=== PATIENT | male | born 2000 | race Caucasian/White ===

== ENCOUNTER 2022-08-16 08:23 | Emergency (ER) | payer SELFPAY ==
--- NOTE | 2022-08-16 09:46 | RAD REPORT ---
EXAM DESCRIPTION: RAD - Ankle Left 3 View - 08/16/2022 8:49 am CLINICAL HISTORY: ankle pain Lateral ankle pain. COMPARISON: No comparisons FINDINGS: Moderate soft tissue swelling is seen laterally. No fracture or dislocation evident.
--- NOTE | 2022-08-16 10:19 | ER ---
Nurse's Notes [facility] Name: Freddie Starkey Age: 22 yrs Sex: Male : 2000 Arrival Date: 08/16/2022 Time: 08:26 Bed 10 Private MD: Diagnosis: Sprain of ankle Presentation: 08/16 08:33 Chief complaint: Patient states: left ankle pain and swelling, rolled ankle yesterday. aa5 Coronavirus screen: At this time, the client does not indicate any symptoms associated with coronavirus-19. Ebola Screen: Patient denies travel to an Ebola-affected area in the 21 days before illness onset. Initial Sepsis Screen: Does the patient meet any 2 criteria? No. Patient's initial sepsis screen is negative. Does the patient have a suspected source of infection? No. Patient's initial sepsis screen is negative. Risk Assessment: Do you want to hurt yourself or someone else? Patient reports no desire to harm self or others. Onset of symptoms was August 15, 2022. 08:33 Method Of Arrival: Wheelchair aa5 08:33 Acuity: SOLITARIO 4 aa5 Historical: - Allergies: 08:35 No Known Allergies; aa5 - PMHx: 08:35 None; aa5 - PSHx: 08:35 None; aa5 - Immunization history:: Adult Immunizations unknown. - Social history:: Smoking status: Patient denies any tobacco usage or history of. Screenin:50 Abuse screen: Denies threats or abuse. Denies injuries from another. Nutritional iw screening: No deficits noted. Tuberculosis screening: No symptoms or risk factors identified. Fall Risk None identified. Assessment: 09:50 General: Appears in no apparent distress. Behavior is calm, cooperative. Pain: iw Complains of pain in left lateral ankle. Neuro: Level of Consciousness is awake, alert, obeys commands, Oriented to person, place, time, situation. Cardiovascular: Patient's skin is warm and dry. Respiratory: Respiratory effort is even, unlabored, Respiratory pattern is regular. Derm: Skin is intact, is healthy with good turgor. Musculoskeletal: Range of motion: limited in left ankle. Vital Signs: 08:35 BP 122 / 84; Pulse 90; Resp 16 S; Temp 98.0(TE); Pulse Ox 100% on R/A; Weight 72.57 kg aa5 (R); Height 5 ft. 10 in. (177.80 cm) (R); 08:35 Body Mass Index 22.96 (72.57 kg, 177.80 cm) [facility] ED Course: 08:26 Patient arrived in ED. rg4 08:27 Dario Rolle PA is PHCP. [facility] 08:27 Rafita Nicolas MD is Attending Physician. [facility] 08:33 Arm band placed on. aa 08:35 Triage completed. aa5 08:51 Ankle Left 3 View XRAY In Process Unspecified. EDMS 09:33 Charlene Cool, RN is Primary Nurse. iw 10:13 Crutch training done. Orthoglass splint: Posterior short lleg splint applied on left dh3 leg. capillary refill <3 seconds. Viewed by MICHI Perez. 10:18 Franklin Grullon MD is Referral Physician. [facility] 10:19 Giovanni Santana DPM is Referral Physician. [facility] 10:31 No provider procedures requiring assistance completed. Patient did not have IV access iw during this emergency room visit. 10:32 Patient has correct armband on for positive identification. iw Administered Medications: No medications were administered Medication: 10:32 VIS not applicable for this client. iw Outcome: 10:19 Discharge ordered by . [facility] 10:32 Discharged to home with crutches, with family. iw 10:32 Condition: good 10:32 Discharge instructions given to patient, Instructed on discharge instructions, follow up and referral plans. medication usage, crutch walking, Demonstrated understanding of instructions, follow-up care, medications, crutch walking, splint care, Prescriptions given X 1. 10:32 Patient left the ED. iw Signatures: Dispatcher [employer] EDMS Dario Rolle PA PA Charlene Hurd, RN RN Hannah Magdaleno RN RN aa5 Garcia, Rubi 4 Vannesa Josue 3 Corrections: (The following items were deleted from the chart) 10:14 10:13 Crutch training done. Orthoglass splint: Posterior short lleg splint applied on dh3 left leg. capillary refill <3 seconds. 3
--- NOTE | 2022-08-16 10:19 | EDPHYS ---
Physician Documentation [facility] Name: Freddie Starkey Age: 22 yrs Sex: Male : 2000 Arrival Date: 08/16/2022 Time: 08:26 Bed 10 Private MD: ED Physician Rafita Nicolas HPI: 08/16 09:13 This 22 yrs old Male presents to ER via Wheelchair with complaints of Ankle Injury. [facility] 09:13 The complaints affect the left ankle. Onset: The symptoms/episode began/occurred jmm acutely, just prior to arrival. Modifying factors: The symptoms are alleviated by nothing, the symptoms are aggravated by weight bearing, movement. It is unknown whether or not the patient has had similar symptoms in the past. This is a 22 year old male with no chronic medical conditions that presents to the ED with complaints of left ankle swelling after running into a hole yesterday. Denies other known injury. Patient complaining of pain mainly to the posterior ankle at the site of the achilles tendon. Swelling also noted to the left lateral malleolus. . Historical: - Allergies: 08:35 No Known Allergies; aa5 - PMHx: 08:35 None; aa5 - PSHx: 08:35 None; aa5 - Immunization history:: Adult Immunizations unknown. - Social history:: Smoking status: Patient denies any tobacco usage or history of. ROS: 09:13 Constitutional: Negative for fever, chills, and weight loss, Cardiovascular: Negative jmm for chest pain, palpitations, and edema, Respiratory: Negative for shortness of breath, cough, wheezing, and pleuritic chest pain. 09:13 MS/extremity: Positive for pain, swelling. 09:13 All other systems are negative. Exam: 09:13 Constitutional: This is a well developed, well nourished patient who is awake, alert, jmm and in no acute distress. Head/Face: atraumatic. Eyes: EOMI, no conjunctival erythema appreciated ENT: Moist Mucus Membranes Neck: Trachea midline, Supple Chest/axilla: Normal chest wall appearance and motion. Cardiovascular: Regular rate and rhythm. No edema appreciated Respiratory: Normal respirations, no respiratory distress appreciated Abdomen/GI: Non distended Back: Normal ROM Skin: General appearance color normal 09:13 Musculoskeletal/extremity: swelling noted to the left lateral malleolus, compartments are soft, full dorsalis pedis pulse, NVI. 09:13 Skin: Appearance: Color: normal in color. 09:13 Neuro: Orientation: is normal, Mentation: is normal, Memory: is normal. 09:13 Psych: Behavior/mood is pleasant, cooperative. Vital Signs: 08:35 BP 122 / 84; Pulse 90; Resp 16 S; Temp 98.0(TE); Pulse Ox 100% on R/A; Weight 72.57 kg aa5 (R); Height 5 ft. 10 in. (177.80 cm) (R); 08:35 Body Mass Index 22.96 (72.57 kg, 177.80 cm) aa5 Procedures: 09:53 Splinting: Splinting: Splint applied to left leg using post with plantarflexion. [facility] applied by tech. Examined by me, post splint application: neurovascular intact, 2+ distal pulses palpable, brisk capillary refill noted, Patient tolerated well. MDM: 08:34 Patient medically screened. [facility] 09:40 Data reviewed: vital signs, nurses notes. [facility] 10:17 Counseling: I had a detailed discussion with the patient and/or guardian regarding: the [facility] historical points, exam findings, and any diagnostic results supporting the discharge/admit diagnosis, radiology results, the need for outpatient follow up, to return to the emergency department if symptoms worsen or persist or if there are any questions or concerns that arise at home. ED course: Splinted with plantarflexion due to patient concerns for achilles tendon injury. Patient advised to follow up with orthpedics and otherwise given strict return precautions. patient understood and agrees with the plan of care. . 08/16 08:37 Order name: Ankle Left 3 View XRAY; Complete Time: 09:53 [facility] 08/16 09:32 Order name: Sen wrap-joint; Complete Time: 10:21 [facility] 08/16 09:32 Order name: Crutches; Complete Time: 10:15 [facility] 08/16 09:38 Order name: Posterior Leg Splint: with plantarflexion; Complete Time: 10:15 [facility] Administered Medications: No medications were administered Disposition: 13:02 Co-signature as Attending Physician, Rafita Nicolas MD. rn Disposition Summary: 08/16/22 10:19 Discharge Ordered Location: Home [facility] Condition: Stable [facility] Diagnosis - Sprain of ankle [facility] Followup: [facility] - With: Franklin Grullon MD - When: 2 - 3 days - Reason: Recheck today's complaints, Continuance of care, Re-evaluation by your physician Followup: [facility] - With: Giovanni Santana DPM - When: 2 - 3 days - Reason: Recheck today's complaints, Continuance of care, Re-evaluation by your physician Discharge Instructions: - Discharge Summary Sheet [facility] - Ankle Sprain [facility] - Achilles Tendon Tear, Phase I Rehab-SportsMed [facility] Forms: - Medication Reconciliation Form [facility] - Thank You Letter [facility] - Antibiotic Education [facility] - Prescription Opioid Use [facility] Prescriptions: - Diclofenac Sodium 75 mg Oral Tablet Sustained Release - take 1 tablet by ORAL route 2 times per day; 30 tablet; Refills: 0, Product [facility] Selection Permitted Signatures: Dispatcher [employer] EDMS Dario Rolle PA PA [facility] Rafita Nicolas MD MD rn Calderon, Audri RN RN aa5 Corrections: (The following items were deleted from the chart) 09:40 09:13 This is a 22 year old male with no chronic medical conditions that presents to [facility] the ED with complaints of left ankle swelling after running into a hole yesterday. Denies other known injury. . [facility] 10:17 09:53 Splinting: [facility]
[2022-08-17 20:21] VITALS: BP 122/84; TEMP 98; O2SAT 100
== END 2022-08-16 10:32 | disposition home or self-care (01) ==
LOC: ER 08:23
DX: S93.402A Sprain of unspecified ligament of left ankle, initial encounter (principal)
CPT/HCPCS: 99283